=== PATIENT | male | born 1970 | race Caucasian/White ===

== ENCOUNTER 2020-05-14 18:10 | Inpatient (IN) | payer OTHER ==
[2020-05-14 18:28] VITALS: BMI 22.9
[2020-05-14] MEDS ORDERED: LACTATED RINGERS SOLUTION 1000 ML INFUS.BAG IV STA (19:24)
[2020-05-14] MEDS ORDERED: THIAMINE HCL 200 MG/2 ML VIAL IVPB ONE (19:25)
[2020-05-14] MEDS ORDERED: VANCOMYCIN 1,000 MG in DEXTROSE 5%-WATER - 250 ML IVPB ONE (19:30)
[2020-05-14] MEDS ORDERED: THIAMINE HCL 200 MG/2 ML VIAL ONE (20:50)
[2020-05-14] MEDS ORDERED: VANCOMYCIN 1 GRAM (PRE-DOCKED) 1,000 MG/250 ML BAG IVPB ONE (20:50)
[2020-05-14 21:01] LABS: EOS % 4.7 % (0-4.5); HEMOGLOBIN 11.4 GM/dL (11.7-16.9); LYMPH % 34.5 % (8-40); MCH 32.3 pg (25.7-33.7); MCHC 33.6 g/dl (32.0-35.9); MEAN CELL VOLUME 96.1 fl (80-96); MEAN PLT VOLUME 9.3 fl (7.5-11.1); MONO % 12.3 % (3.8-10.2); NEUT % 45.5 % (42.8-82.8); PLATELET COUNT 259 K/MM3 (134-434); RBC 3.53 M/mm3 (4.00-5.60); WHITE BLOOD COUNT 4.2 K/mm3 (4.0-10.0)
[2020-05-14 21:09] LABS: INR 1.03 (0.83-1.09); PROTHROMBIN TIME (PATIENT) 12.4 SEC (9.7-13.0)
[2020-05-14 21:23] LABS: ALBUMIN 3.7 g/dl (3.4-5.0); BLOOD UREA NITROGEN 4.5 mg/dL (7-18); CALCIUM 8.6 mg/dL (8.5-10.1)
[2020-05-14 21:24] LABS: MAGNESIUM 1.7 mg/dL (1.8-2.4)
[2020-05-14 21:26] LABS: PHOSPHOROUS 3.7 mg/dL (2.5-4.9)
[2020-05-14 21:27] LABS: CREATININE 0.8 mg/dL (0.55-1.3)
[2020-05-14 21:28] LABS: BILIRUBIN,TOTAL 0.3 mg/dL (0.2-1); TOT PROT 6.5 g/dl (6.4-8.2)
[2020-05-14] MEDS ORDERED: LORazepam 2 MG/ML SDV VIAL IM STA (21:45)
[2020-05-14] MEDS ORDERED: LORazepam 2 MG/ML SDV VIAL ONE (21:49)
[2020-05-14] MEDS ORDERED: SODIUM CHLORIDE 1,000 ML IV SCH (23:45)
[2020-05-14] MEDS ORDERED: ACETAMINOPHEN 325 MG TABLET (FP) PO PRN (23:53)
[2020-05-14] MEDS ORDERED: chlordiazePOXIDE HCL 25 MG CAPSULE PO PRN (23:58)
[2020-05-15] MEDS ORDERED: MAGNESIUM SULF 50% (8.12 MEQ/2 ML-1 GM VIAL) IVPB ONE ×2 (03:17→09:27)
[2020-05-15] MEDS ORDERED: ALBUTEROL SO4 HFA INHALER IH PRN (03:35)
[2020-05-15] MEDS ORDERED: diphenhydrAMINE HCL 25 MG CAPSULE (FP) PO PRN (03:38)
[2020-05-15] MEDS ORDERED: MAGNESIUM 1GM/D5W - 1 GM/100 ML IVPB IVPB ONE ×2 (06:22→10:20)
[2020-05-15] MEDS ORDERED: chlordiazePOXIDE HCL 25 MG CAPSULE ONE ×2 (06:55→14:40)
[2020-05-15] MEDS: chlordiazePOXIDE HCL 25 MG CAPSULE PO SCH ×4 (06:58→14:47)
[2020-05-15] MEDS: INSULIN SLIDING SCALE (NOVOLOG) 1 VIAL SQ SCH ×2 (07:06→12:04)
[2020-05-15 08:53] LABS: HEMATOCRIT 36.4 % (35.4-49); HEMOGLOBIN 12.3 GM/dL (11.7-16.9); MCH 32.5 pg (25.7-33.7); MCHC 33.8 g/dl (32.0-35.9); MEAN CELL VOLUME 96.1 fl (80-96); MEAN PLT VOLUME 9.5 fl (7.5-11.1); PLATELET COUNT 238 K/MM3 (134-434); RBC 3.79 M/mm3 (4.00-5.60); RDW 12.8 % (11.9-15.9); WHITE BLOOD COUNT 5.2 K/mm3 (4.0-10.0)
[2020-05-15] MEDS ORDERED: FOLIC ACID 1 MG TABLET (FP) ONE (08:55)
[2020-05-15] MEDS ORDERED: THIAMINE HCL 200 MG/2 ML VIAL ONE (08:55)
[2020-05-15] MEDS ORDERED: ENOXAPARIN NA (PORCINE) 40 MG/0.4 ML DISP.SYRIN SQ ONE (08:56)
[2020-05-15 08:58] LABS: INR 1.04 (0.83-1.09); PROTHROMBIN TIME (PATIENT) 12.8 SEC (9.7-13.0)
[2020-05-15 09:00] LABS: ACTIVATED PTT 28.6 SECONDS (25.2-36.5)
[2020-05-15 09:13] LABS: POTASSIUM 3.8 mmol/L (3.5-5.1)
[2020-05-15 09:15] LABS: CALCIUM 8.8 mg/dL (8.5-10.1)
[2020-05-15 09:16] LABS: ALBUMIN 3.6 g/dl (3.4-5.0); BLOOD UREA NITROGEN 6.2 mg/dL (7-18); MAGNESIUM 1.7 mg/dL (1.8-2.4)
[2020-05-15 09:19] LABS: CREATININE 0.7 mg/dL (0.55-1.3); PHOSPHOROUS 3.5 mg/dL (2.5-4.9)
[2020-05-15 09:20] LABS: BILIRUBIN,TOTAL 0.9 mg/dL (0.2-1)
[2020-05-15 09:21] LABS: TOT PROT 6.2 g/dl (6.4-8.2)
[2020-05-15] MEDS: THIAMINE HCL 200 MG/2 ML VIAL IVPB SCH ×2 (09:23→10:40)
[2020-05-15] MEDS: FOLIC ACID 1 MG TABLET (FP) PO SCH ×2 (09:24→10:40)
[2020-05-15] MEDS ORDERED: ENOXAPARIN NA (PORCINE) 40 MG/0.4 ML DISP.SYRIN SQ SCH (10:00)
[2020-05-15] MEDS ORDERED: MULTIVIT INJ. ADULT COMBO WITH VIT K 1 COMBO 10 ML VIAL IV SCH ×2 (10:00)
[2020-05-15 10:47] LABS: PHENCYCLIDINE,URINE NEGATIVE ng/ml (CUTOFF=25)
[2020-05-15 11:02] LABS: URINE APPEARANCE CLEAR; URINE BILIRUBIN NEGATIVE (NEGATIVE); URINE COLOR YELLOW; URINE GLUCOSE (UA) NEGATIVE (NEGATIVE); URINE KETONE NEGATIVE (NEGATIVE); URINE LEUK ESTERASE NEGATIVE (NEGATIVE); URINE NITRITE NEGATIVE (NEGATIVE); URINE PROTEIN NEGATIVE (NEGATIVE); URINE UROBILINOGEN 0.2 mg/dL (0.2-1.0)
[2020-05-15 11:17] LABS: COCAINE, UR NEGATIVE ng/ml (CUTOFF=300); METHADONE, UR NEGATIVE ng/ml (CUTOFF=300); OPIATES, URI NEGATIVE ng/ml (CUTOFF=300); URINE AMPHETAMINES NEGATIVE ng/ml (CUTOFF=500); URINE BARBITURATES NEGATIVE ng/ml (CUTOFF=200)
[2020-05-15 11:20] LABS: URINE BENZODIAZEPINES POSITIVE ng/ml (CUTOFF=200)
[2020-05-15 16:39] VITALS: BP 128/68; PULSE 89; TEMP 98.1
[2020-05-16] MEDS ORDERED: chlordiazePOXIDE HCL 25 MG CAPSULE PO SCH (05:00)
[2020-05-16] MEDS ORDERED: MULTIVITAMINS (DAILY MVI) TABLET (FP) PO SCH (10:00)
[2020-05-17] MEDS ORDERED: chlordiazePOXIDE HCL 10 MG CAPSULE PO PRN
[2020-05-17] MEDS ORDERED: chlordiazePOXIDE HCL 10 MG CAPSULE PO SCH (05:00)
[2020-05-18] MEDS ORDERED: chlordiazePOXIDE HCL 10 MG CAPSULE PO SCH (05:00)
[2020-05-19] MEDS ORDERED: chlordiazePOXIDE HCL 10 MG CAPSULE PO ONE (05:00)
== END 2020-05-15 17:00 | disposition short-term general hospital (02) | DRG 607 ==
LOC: JER 18:10 → JERBED 21:51
PROVIDERS: ADMIT Hospitalist; ATTEND Internal Medicine
PROC: HZ2ZZZZ Detoxification Services for Substance Abuse Treatment (ICD-10-PCS; principal; 2020-05-14)
DX: L23.1 Allergic contact dermatitis due to adhesives (principal); C18.9 Malignant neoplasm of colon, unspecified; F10.239 Alcohol dependence with withdrawal, unspecified; R21 Rash and other nonspecific skin eruption; J45.909 Unspecified asthma, uncomplicated; R26.81 Unsteadiness on feet; G40.909 Epilepsy, unspecified, not intractable, without status epilepticus; Z87.11 Personal history of peptic ulcer disease; Z86.711 Personal history of pulmonary embolism; Z86.73 Personal history of transient ischemic attack (TIA), and cerebral infarction without residual deficits
CPT/HCPCS: 36415; 71045-TC-FY; 80053; 80307; 81003; 82962; 83735; 84100; 84443; 85025; 85027; 85610; 85730; 87040; 87086; 87804; 93005; 93010; 99285-25; C9803; U0003

== ENCOUNTER 2020-05-15 17:34 | Inpatient (IN) | payer OTHER ==
[2020-05-15 18:42] VITALS: BMI 22.4
[2020-05-15] MEDS ORDERED: IBUPROFEN 400 MG TABLET (FP) PO PRN (21:24)
[2020-05-15] MEDS ORDERED: NICOTINE POLACRILEX 2 MG GUM BUC PRN (21:24)
[2020-05-15] MEDS ORDERED: chlordiazePOXIDE HCL 25 MG CAPSULE PO PRN (21:24)
[2020-05-15] MEDS ORDERED: MAGNESIUM CITRATE 300 ML BOTTLE PO PRN (21:24)
[2020-05-15] MEDS ORDERED: METHOCARBAMOL 500 MG TABLET PO PRN (21:24)
[2020-05-15] MEDS ORDERED: ACETAMINOPHEN 325 MG TABLET (FP) PO PRN (21:24)
[2020-05-15] MEDS ORDERED: BISMUTH SUBSALICYLATE 524 MG/30 ML UD PO PRN (21:24)
[2020-05-15] MEDS ORDERED: MAGNESIUM HYDROX 2400MG/30ML ORAL SUSPENSION 30 ML CUP PO PRN (21:24)
[2020-05-15] MEDS ORDERED: MENTHOL/PHENOL 1 EACH UD MM PRN (21:24)
[2020-05-15] MEDS ORDERED: ONDANSETRON *ODT* 4 MG TABLET SL PRN (21:24)
[2020-05-15] MEDS: LACOSAMIDE 50 MG TABLET PO SCH (23:13)
[2020-05-15] MEDS: PHENobarbital 30 MG TABLET PO SCH (23:13)
[2020-05-15] MEDS: CYCLOBENZAPRINE HCL 10 MG TABLET (FP) PO SCH (23:13)
[2020-05-15] MEDS: THIAMINE HCL 100 MG TABLET (FP) PO SCH (23:14)
[2020-05-15] MEDS: MELATONIN 5 MG TABLETS PO SCH (23:14)
[2020-05-15] MEDS: chlordiazePOXIDE HCL 25 MG CAPSULE PO SCH (23:15)
[2020-05-15] MEDS: ACETAMINOPHEN 325 MG TABLET (FP) PO PRN (23:17)
[2020-05-15] MEDS: ALBUTEROL SO4 HFA INHALER IH PRN (23:44)
[2020-05-16] MEDS: chlordiazePOXIDE HCL 25 MG CAPSULE PO SCH ×4 (06:22→22:44)
[2020-05-16] MEDS: CYCLOBENZAPRINE HCL 10 MG TABLET (FP) PO SCH ×3 (06:22→22:44)
[2020-05-16] MEDS: ALBUTEROL SO4 HFA INHALER IH PRN ×2 (06:27→19:31)
[2020-05-16] MEDS: NICOTINE 14 MG/24 HOURS TOPICAL PATCH TD SCH (10:25)
[2020-05-16] MEDS: PANTOPRAZOLE 40 MG TABLET PO SCH (10:28)
[2020-05-16] MEDS: LACOSAMIDE 50 MG TABLET PO SCH ×2 (10:28→22:44)
[2020-05-16] MEDS: PHENobarbital 30 MG TABLET PO SCH ×2 (10:28→22:44)
[2020-05-16] MEDS: PRENATAL VITAMINS W/ FOLIC ACID TABLET (FP) PO SCH (10:28)
[2020-05-16] MEDS ORDERED: MASKS NR ONE (19:19)
[2020-05-16] MEDS: THIAMINE HCL 100 MG TABLET (FP) PO SCH (22:44)
[2020-05-16] MEDS: MELATONIN 5 MG TABLETS PO SCH (22:44)
[2020-05-17] MEDS: ALBUTEROL SO4 HFA INHALER IH PRN ×2 (02:19→22:48)
[2020-05-17] MEDS: CYCLOBENZAPRINE HCL 10 MG TABLET (FP) PO SCH ×3 (06:47→22:09)
[2020-05-17] MEDS: MAG HYDROX/AL HYDROX/SIMETH 30 ML UNIT-DOSE CUP PO PRN (06:48)
[2020-05-17] MEDS: chlordiazePOXIDE HCL 25 MG CAPSULE PO SCH ×4 (06:49→22:10)
[2020-05-17] MEDS: NICOTINE 14 MG/24 HOURS TOPICAL PATCH TD SCH (10:06)
[2020-05-17] MEDS: LACOSAMIDE 50 MG TABLET PO SCH ×2 (10:07→22:10)
[2020-05-17] MEDS: PANTOPRAZOLE 40 MG TABLET PO SCH (10:07)
[2020-05-17] MEDS: PRENATAL VITAMINS W/ FOLIC ACID TABLET (FP) PO SCH (10:07)
[2020-05-17] MEDS: PHENobarbital 30 MG TABLET PO SCH ×2 (10:07→22:09)
[2020-05-17] MEDS: MELATONIN 5 MG TABLETS PO SCH (22:10)
[2020-05-17] MEDS: THIAMINE HCL 100 MG TABLET (FP) PO SCH (22:10)
[2020-05-17] MEDS: LIDOCAINE PATCH REMOVAL MC SCH (22:33)
[2020-05-18] MEDS ORDERED: chlordiazePOXIDE HCL 10 MG CAPSULE PO PRN
[2020-05-18] MEDS: chlordiazePOXIDE HCL 10 MG CAPSULE PO SCH ×4 (05:52→22:45)
[2020-05-18] MEDS: CYCLOBENZAPRINE HCL 10 MG TABLET (FP) PO SCH ×3 (05:52→22:45)
[2020-05-18] MEDS: NICOTINE 14 MG/24 HOURS TOPICAL PATCH TD SCH (11:41)
[2020-05-18] MEDS: LIDOCAINE 5% TOPICAL PATCH TP SCH (11:41)
[2020-05-18] MEDS: PRENATAL VITAMINS W/ FOLIC ACID TABLET (FP) PO SCH (11:42)
[2020-05-18] MEDS: PANTOPRAZOLE 40 MG TABLET PO SCH (11:42)
[2020-05-18] MEDS: PHENobarbital 30 MG TABLET PO SCH ×2 (11:42→22:45)
[2020-05-18] MEDS: LACOSAMIDE 50 MG TABLET PO SCH ×2 (11:42→22:45)
[2020-05-18] MEDS: ALBUTEROL SO4 HFA INHALER IH PRN (14:32)
[2020-05-18] MEDS: MAG HYDROX/AL HYDROX/SIMETH 30 ML UNIT-DOSE CUP PO PRN (21:21)
[2020-05-18] MEDS: THIAMINE HCL 100 MG TABLET (FP) PO SCH (22:45)
[2020-05-18] MEDS: MELATONIN 5 MG TABLETS PO SCH (22:45)
[2020-05-18] MEDS: LIDOCAINE PATCH REMOVAL MC SCH (22:45)
[2020-05-19] MEDS: ALBUTEROL SO4 HFA INHALER IH PRN (01:53)
[2020-05-19] MEDS: MAG HYDROX/AL HYDROX/SIMETH 30 ML UNIT-DOSE CUP PO PRN (03:02)
[2020-05-19] MEDS: CYCLOBENZAPRINE HCL 10 MG TABLET (FP) PO SCH ×3 (06:49→23:10)
[2020-05-19] MEDS: chlordiazePOXIDE HCL 10 MG CAPSULE PO SCH ×3 (06:50→17:51)
[2020-05-19] MEDS: PHENobarbital 30 MG TABLET PO SCH ×2 (11:47→23:09)
[2020-05-19] MEDS: LIDOCAINE 5% TOPICAL PATCH TP SCH (11:47)
[2020-05-19] MEDS: NICOTINE 14 MG/24 HOURS TOPICAL PATCH TD SCH (11:47)
[2020-05-19] MEDS: PRENATAL VITAMINS W/ FOLIC ACID TABLET (FP) PO SCH (11:48)
[2020-05-19] MEDS: LACOSAMIDE 50 MG TABLET PO SCH ×2 (11:48→23:09)
[2020-05-19] MEDS: PANTOPRAZOLE 40 MG TABLET PO SCH (11:48)
[2020-05-19] MEDS: MELATONIN 5 MG TABLETS PO SCH (23:10)
[2020-05-19] MEDS: THIAMINE HCL 100 MG TABLET (FP) PO SCH (23:11)
[2020-05-19] MEDS: LIDOCAINE PATCH REMOVAL MC SCH (23:11)
[2020-05-20] MEDS: ACETAMINOPHEN 325 MG TABLET (FP) PO PRN (00:33)
[2020-05-20] MEDS: ALBUTEROL SO4 HFA INHALER IH PRN ×2 (00:35→08:45)
[2020-05-20] MEDS: MAG HYDROX/AL HYDROX/SIMETH 30 ML UNIT-DOSE CUP PO PRN (03:24)
[2020-05-20] MEDS ORDERED: chlordiazePOXIDE HCL 10 MG CAPSULE PO ONE (05:00)
[2020-05-20] MEDS: CYCLOBENZAPRINE HCL 10 MG TABLET (FP) PO SCH (07:16)
[2020-05-20 09:16] VITALS: BP 115/84; PULSE 66; TEMP 97.1
[2020-05-20] MEDS: PRENATAL VITAMINS W/ FOLIC ACID TABLET (FP) PO SCH (10:25)
[2020-05-20] MEDS: PANTOPRAZOLE 40 MG TABLET PO SCH (10:26)
[2020-05-20] MEDS: NICOTINE 14 MG/24 HOURS TOPICAL PATCH TD SCH (10:26)
[2020-05-20] MEDS: PHENobarbital 30 MG TABLET PO SCH (10:26)
[2020-05-20] MEDS: LIDOCAINE 5% TOPICAL PATCH TP SCH (10:27)
[2020-05-20] MEDS: LACOSAMIDE 50 MG TABLET PO SCH (10:27)
== END 2020-05-20 10:47 | disposition home or self-care (01) | DRG 897 ==
LOC: YASAS 17:34 → Y6N 19:05 → Y3N 05-20 00:05
PROVIDERS: ADMIT Allergy & Immunology; ATTEND Allergy & Immunology
PROC: HZ2ZZZZ Detoxification Services for Substance Abuse Treatment (ICD-10-PCS; principal; 2020-05-15)
DX: F10.230 Alcohol dependence with withdrawal, uncomplicated (principal); F17.210 Nicotine dependence, cigarettes, uncomplicated; G40.909 Epilepsy, unspecified, not intractable, without status epilepticus; J45.909 Unspecified asthma, uncomplicated; K21.9 Gastro-esophageal reflux disease without esophagitis; R22.1 Localized swelling, mass and lump, neck; R29.898 Other symptoms and signs involving the musculoskeletal system; Z85.028 Personal history of other malignant neoplasm of stomach; Z95.828 Presence of other vascular implants and grafts; Z86.711 Personal history of pulmonary embolism; Z85.038 Personal history of other malignant neoplasm of large intestine; Z87.81 Personal history of (healed) traumatic fracture; Z99.89 Dependence on other enabling machines and devices; Z88.0 Allergy status to penicillin; Z91.018 Allergy to other foods; Y04.2XXA Assault by strike against or bumped into by another person, initial encounter; Y92.230 Patient room in hospital as the place of occurrence of the external cause; Y93.89 Activity, other specified; Y99.8 Other external cause status
CPT/HCPCS: 36415; 82962; 86780; C9803; U0003